=== PATIENT | female | born 1995 | race Caucasian/White ===

== ENCOUNTER → 2020-08-31 | Outpatient (CLI) | payer OTHER ==
[~2020-08-31] MED LIST: OMNIPAQUE 350 MG/ML, 100ML BOTTLE ONE
== END | disposition home or self-care (01) ==
LOC: CFH 10:37
PROVIDERS: ATTEND Family Medicine
DX: D16.7 Benign neoplasm of ribs, sternum and clavicle (principal)
CPT/HCPCS: 71275; Q9967